=== PATIENT | male | born 1965 | race Caucasian/White ===

== ENCOUNTER 2017-06-08 00:02 | Emergency (ER) | payer SELFPAY ==
[~2017-06-08] VITALS: Ht 165.1 cm; Wt 60.0 kg
[2017-06-08 00:24] VITALS: BP 143/72; PULSE 91; RESP 16; TEMP 97.9; O2SAT 98
--- NOTE | 2017-06-08 02:18 | PD ---
HPI Chief Complaint: Fall Time Seen by Provider: 00:46 Travel History International Travel<30 days: No Contact w/Intl Traveler<30days: No Traveled to known affect area: No History of Present Illness HPI 51-year-old male presents to the emergency department by private transportation the care of friends after being witnessed to have a fall with 2 minutes of loss of consciousness after hitting his head on pavement. Patient was reported to have no episode of pulselessness or apnea but reportedly face turned purple. There was no reported seizure activity and no reported vomiting. Subsequently the patient came to spontaneously was immediately briefly confused and then seemed to come back to his normal mentation although he has been ranking alcohol heavily and appeared to be inebriated. Friends decided to bring him to the emergency department for evaluation. Patient initially was cooperative but repetitively decided he did not need to be evaluated but also appeared to be repetitively amnestic as to why he was in the emergency department. Patient here states that he thinks he is fine but notes that he has his head and reports these had multiple concussions in the past. Patient rates his pain as 0 /10 in intensity. Patient denies other concerns or complaints. [facility] Past Medical History Narrative Medical Concussion; alcohol use; nursing notes reviewed Medical History: Unable to Obtain Past Surgical History Surgical History: Unable to Obtain Social History Alcohol Use: Yes (DAILY) Tobacco Use: No (UNK) Allergies-Medications (Allergen,Severity, Reaction): Coded Allergies: No Known Allergies (Unverified , 06/08/17) Comments No known drug allergies Narrative Medication no medications Review of Systems Except as stated in HPI: all other systems reviewed are Neg Physical Exam Narrative GENERAL: Well-developed well-nourished male in no acute distress no respiratory distress with slurred speech and intermittent repetitive questions. GCS 14 SKIN: Warm and dry. HEAD: Atraumatic. Normocephalic. Right posterior scalp hematoma. EYES: Pupils equal and round. No scleral icterus. No injection or drainage. ENT: No nasal bleeding or discharge. Mucous membranes pink and moist. NECK: Trachea midline. No JVD. No midline tenderness to direct palpation along the cervical spine. CARDIOVASCULAR: Regular rate and rhythm. RESPIRATORY: No accessory muscle use. Clear to auscultation. Breath sounds equal bilaterally. GASTROINTESTINAL: Abdomen soft, non-tender, nondistended. Hepatic and splenic margins not palpable. MUSCULOSKELETAL: Extremities without clubbing, cyanosis, or edema. No obvious deformities. NEUROLOGICAL: Awake and alert. No obvious cranial nerve deficits. Motor grossly within normal limits. Five out of 5 muscle strength in the arms and legs. Slurring of speech. Data Data Last Documented VS Vital Signs Date Time Temp Pulse Resp B/P (MAP) Pulse Ox O2 Delivery O2 Flow Rate FiO2 06/08/17 03:00 06/08/17 00:50 16 06/08/17 00:24 97.9 91 98 Room Air Orders Orders Ct Brain W/O Iv Contrast(Rout) (06/08/17 ) Ct Cerv Spine W/O Contrast (06/08/17 ) Ed Discharge Order (06/08/17 02:52) MDM Medical Decision Making Medical Screen Exam Complete: Yes Emergency Medical Condition: Yes Medical Record Reviewed: Yes Interpretation(s) Last Impressions Head CT 06/08/17 0000 Signed Impressions: Service Date/Time: Thursday, June 08, 2017 02:20 - CONCLUSION: Soft tissue swelling over the left parietal bone with no evidence of hemorrhage or fracture. Francisco Covarrubias MD Cervical Spine CT 06/08/17 0000 Signed Impressions: Service Date/Time: Thursday, June 08, 2017 02:21 - CONCLUSION: Negative trauma CT. Francisco Covarrubias MD Vital Signs Date Time Temp Pulse Resp B/P (MAP) Pulse Ox O2 Delivery O2 Flow Rate FiO2 06/08/17 03:00 06/08/17 00:50 16 06/08/17 00:24 97.9 91 16 143/72 (95) 98 Room Air Differential Diagnosis Medical allergies injury, concussion, ICH, epidural hematoma, alcohol intoxication, cervical spine injury Narrative Course CT imaging of the brain and cervical spine ordered patient agrees to have imaging studies done but intermittently threatens to walk out although he remains clearly intoxicated At 2:15 AM patient does agree to have imaging study performed Patient left the emergency department without discharge instructions in the care of his companions. Diagnosis Primary Impression: Closed head injury Qualified Codes: S09.90XA - Unspecified injury of head, initial encounter Additional Impressions: Scalp hematoma Qualified Codes: S00.03XA - Contusion of scalp, initial encounter Alcohol intoxication Qualified Codes: F10.920 - Alcohol use, unspecified with intoxication, uncomplicated Referrals: Primary Care Physician call for appointment Patient Instructions: General Instructions Additional Instructions: Do not drink alcohol beverages Return to the emergency department for any concerns or change in condition Follow closed head injury precautions 24 hours Apply ice to scalp intermittently for next 12-24 hours Disposition: 01 DISCHARGE HOME Condition: Laura Vidales MD Jun 08, 2017 02:18
--- NOTE | 2017-06-08 02:44 | RADRPT ---
EXAM DATE/TIME: 06/08/2017 02:20 [facility] COMPARISON: No previous studies available for comparison. INDICATIONS : Trauma, patient fell hitting back of head. RADIATION DOSE: 56.35 CTDIvol (mGy) MEDICAL HISTORY : None SURGICAL HISTORY : None. ENCOUNTER: Initial ACUITY: 1 day PAIN SCALE: 0/10 LOCATION: cranial TECHNIQUE: Multiple contiguous axial images were obtained of the head. Using automated exposure control and adj ustment of the mA and/or kV according to patient size, radiation dose was kept as low as reasonably a chievable to obtain optimal diagnostic quality images. DICOM format image data is available electro nically for review and comparison. FINDINGS: CEREBRUM: The ventricles are normal for age. No evidence of midline shift, mass lesion, hemorrhage or acute in farction. No extra-axial fluid collections are seen. POSTERIOR FOSSA: The cerebellum and brainstem are intact. The 4th ventricle is midline. The cerebellopontine angle i s unremarkable. EXTRACRANIAL: The visualized portion of the orbits is intact. SKULL: The calvaria is intact. No evidence of skull fracture. There is soft tissue swelling over the left p arietal bone. CONCLUSION: Soft tissue swelling over the left parietal bone with no evidence of hemorrhage or fracture. Francisco Covarrubias MD on June 08, 2017 at 2:42 Board Certified Radiologist. This report was verified electronically.
--- NOTE | 2017-06-08 02:46 | RADRPT ---
EXAM DATE/TIME: 06/08/2017 02:21 [facility] COMPARISON: No previous studies available for comparison. INDICATIONS : Trauma, patient fell hitting back of head. RADIATION DOSE: 34.66 CTDIvol (mGy) MEDICAL HISTORY : None SURGICAL HISTORY : None. ENCOUNTER: Initial ACUITY: 1 day PAIN SCALE: 0/10 LOCATION: neck TECHNIQUE: Volumetric scanning of the cervical spine was performed. Multiplanar reconstructions i n the sagittal, coronal and oblique axial planes were performed. Using automated exposure control a nd adjustment of the mA and/or kV according to patient size, radiation dose was kept as low as reason ably achievable to obtain optimal diagnostic quality images. DICOM format image data is available e lectronically for review and comparison. FINDINGS: The sagittal reconstructions demonstrate normal alignment and normal prevertebral soft tissues. The d ens is intact and there is a normal atlantoaxial relationship. Degenerative changes present C5-6 and C6-7 levels with disc space narrowing and hypertrophic change. The axial images demonstrate that the vertebral bodies and posterior elements are intact. The soft ti ssues are within normal limits. There is no evidence of acute fracture or malalignment. Degenerative changes are noted involving the left L2-3 facet joint with hypertrophic change. CONCLUSION: Negative trauma CT. Francisco Covarrubias MD on June 08, 2017 at 2:43 Board Certified Radiologist. This report was verified electronically.
== END 2017-06-08 03:36 | disposition home or self-care (01) ==
LOC: NEPC 00:02
DX: S09.90XA Unspecified injury of head, initial encounter (principal); S00.03XA Contusion of scalp, initial encounter; F10.129 Alcohol abuse with intoxication, unspecified
CPT/HCPCS: 70450; 72125; 99285